=== PATIENT | female | born 1955 | race Caucasian/White ===

== ENCOUNTER 2018-01-17 10:35 | Inpatient (IN) | payer OTHER ==
[~2018-01-17] VITALS: Ht 162.6 cm; Wt 66.7 kg
[2018-01-17 10:36] VITALS: BP 137/60
[2018-01-17 11:05] LABS: HEMATOCRIT 44.7 % (37.0-47.0); HEMOGLOBIN 13.9 g/dl (12.0-16.0); MEAN CELL VOLUME 97.2 fl (81.0-99.0); MEAN CORPUSCULAR HGB 30.2 pg (27.0-31.0); MEAN CORPUSCULAR HGB CONC 31.1 g/dl (33.0-37.0); MEAN PLATELET VOLUME 11.6 fl (9.6-12.3); PLATELET COUNT AUTOMATED 327 10*3/uL (130-400); RED CELL DISTRI WIDTH 12.6 % (0-14.5); WHITE BLOOD COUNT 22.8 10*3/uL (4.8-10.8)
[2018-01-17 11:14] LABS: ACT PARTIAL THROMBO TIME 27.1 SECONDS (20.8-31.5); INTERNATIONAL NORM RATIO 0.9 (2.0-3.5)
[2018-01-17 11:30] LABS: BURR CELLS FEW; PLATELET SUFFICIENCY NORMAL (NORMAL); TOTAL CELLS COUNTED 100 #CELLS
[2018-01-17 11:43] LABS: ALBUMIN 4.5 gm/dl (3.1-4.5); BUN 26 mg/dl (7-24); CHLORIDE 105 mmol/L (98-107); CREATININE 1.54 mg/dL (0.55-1.02); LIPASE 87 U/L (73-393); SODIUM 139 mmol/L (136-145)
[2018-01-17 11:52] LABS: ALKALINE PHOSPHATASE 122 U/L (45-117); SGOT/AST 15 IU/L (3-35); SGPT/ALT 25 U/L (12-78); TOTAL PROTEIN 8.4 gm/dL (6.4-8.2)
[2018-01-17 12:01] LABS: POTASSIUM 6.1 mmol/L (3.5-5.1)
[2018-01-17 12:04] LABS: BILIRUBIN NEGATIVE (NEGATIVE); BLOOD TRACE-INTACT (NEGATIVE); CLARITY SL CLOUDY (CLEAR); COLOR YELLOW (YELLOW); GLUCOSE 3+ (NEGATIVE); KETONE 3+ (NEGATIVE); LEUKO ESTERASE NEGATIVE (NEGATIVE); NITRITE NEGATIVE (NEGATIVE); PH 5.5 (5.0-9.0); SPECIFIC GRAVITY 1.025 (1.005-1.030); UROBILINOGEN 0.2 E.U./dl (0.2-1.0)
[2018-01-17 12:06] VITALS: BP 142/80
[2018-01-17 12:13] LABS: BACTERIA 1+
[2018-01-17] MEDS ORDERED: LEVEMIR100 UNIT/1 SC (13:11)
[2018-01-17] MEDS ORDERED: ZOCOR40 MG PO (13:12)
[2018-01-17] MEDS ORDERED: ZESTRIL10 MG PO (13:13)
[2018-01-17 13:17] LABS: ABG O2 SATURATION 96.5 % (95-97); ARTERIAL BLOOD GAS PCO2 15.9 mmHg (35-45)
[2018-01-17 13:22] LABS: ABG BASE EXCESS -26.5 mmol/L (-2.0-2.0); ARTERIAL BLOOD GAS PH 7.026 (7.35-7.45)
[2018-01-17 13:25] LABS: TROPONIN I < 0.015 ng/ml (<0.045)
[2018-01-17 16:00] VITALS: BP 147/69
[2018-01-17 20:00] VITALS: BP 118/57
[2018-01-17 20:01] LABS: CREATININE 1.16 mg/dL (0.55-1.02)
[2018-01-18] VITALS (7 sets, daily range): BP systolic 88–107; BP diastolic 46–79
[2018-01-18 00:13] LABS: CREATININE 2.01 mg/dL (0.55-1.02)
[2018-01-18 00:29] LABS: POTASSIUM 3.7 mmol/L (3.5-5.1)
[2018-01-18 02:49] LABS: ALKALINE PHOSPHATASE 86 U/L (45-117); CHLORIDE 119 mmol/L (98-107); CREATININE 1.05 mg/dL (0.55-1.02); POTASSIUM 3.5 mmol/L (3.5-5.1); SGOT/AST 14 IU/L (3-35); SGPT/ALT 19 U/L (12-78); TOTAL PROTEIN 5.6 gm/dL (6.4-8.2)
[2018-01-18 03:13] LABS: BUN 19 mg/dl (7-24)
[2018-01-18 03:14] LABS: SODIUM 144 mmol/L (136-145)
[2018-01-18 04:59] LABS: MEAN CORPUSCULAR HGB 30.5 pg (27.0-31.0); MEAN CORPUSCULAR HGB CONC 32.4 g/dl (33.0-37.0); MEAN PLATELET VOLUME 10.4 fl (9.6-12.3); RED BLOOD COUNT 3.51 10*6/uL (4.10-5.10); RED CELL DISTRI WIDTH 12.8 % (0-14.5)
[2018-01-18 05:11] LABS: HEMOGLOBIN 10.7 g/dl (12.0-16.0); PLATELET COUNT AUTOMATED 198 10*3/uL (130-400)
[2018-01-18 05:28] LABS: BURR CELLS FEW; TOTAL CELLS COUNTED 100 #CELLS
[2018-01-18 05:29] LABS: PLATELET SUFFICIENCY NORMAL (NORMAL)
[2018-01-18 05:31] LABS: BUN 18 mg/dl (7-24); CHLORIDE 121 mmol/L (98-107); CHOLESTEROL 158 mg/dL (<200); CREATININE 0.92 mg/dL (0.55-1.02); HDL CHOLESTEROL 53 mg/dl (40-60); LDL CHOLESTEROL 95 mg/dL (9-159); PHOSPHOROUS 1.9 mg/dL (2.5-4.9); POTASSIUM 3.9 mmol/L (3.5-5.1); SODIUM 147 mmol/L (136-145); TRIGLYCERIDES 52 mg/dl (<150); VLDL CHOLESTEROL 10 mg/dL (6-40)
[2018-01-18 05:37] LABS: THYROID STIM HORMONE (HS) 0.545 uIU/ml (0.358-4.75)
[2018-01-18 06:41] LABS: VITAMIN D, 25-HYDROXY 15.1 ng/mL (30-100)
[2018-01-18 09:35] LABS: BUN 15 mg/dl (7-24); CHLORIDE 118 mmol/L (98-107); CREATININE 0.95 mg/dL (0.55-1.02); SODIUM 145 mmol/L (136-145)
[2018-01-18 12:04] LABS: BUN 15 mg/dl (7-24); CHLORIDE 116 mmol/L (98-107); CREATININE 0.94 mg/dL (0.55-1.02); POTASSIUM 4.4 mmol/L (3.5-5.1); SODIUM 143 mmol/L (136-145)
[2018-01-18 17:34] LABS: BUN 12 mg/dl (7-24); CHLORIDE 114 mmol/L (98-107); CREATININE 0.96 mg/dL (0.55-1.02); POTASSIUM 3.6 mmol/L (3.5-5.1); SODIUM 142 mmol/L (136-145)
[2018-01-18 23:11] LABS: CREATININE 1.11 mg/dL (0.55-1.02); POTASSIUM 4.1 mmol/L (3.5-5.1)
[2018-01-19] VITALS: BP 109/62
[2018-01-19 04:00] VITALS: BP 115/69
[2018-01-19 06:11] LABS: BASO % 0.2 % (0.0-1.0); EOS % 0.4 % (1.0-4.0); HEMATOCRIT 32.7 % (37.0-47.0); HEMOGLOBIN 10.6 g/dl (12.0-16.0); LYMPH # 1.7 10*3/uL (1.3-4.4); LYMPH % 17.4 % (27.0-41.0); MEAN CELL VOLUME 92.9 fl (81.0-99.0); MEAN CORPUSCULAR HGB 30.1 pg (27.0-31.0); MEAN CORPUSCULAR HGB CONC 32.4 g/dl (33.0-37.0); MEAN PLATELET VOLUME 10.9 fl (9.6-12.3); MONO # 0.5 10*3/uL (0.1-1.0); MONO % 5.2 % (3.0-9.0); NEUT # 7.5 10*3/uL (2.3-7.9); NEUT % 76.4 % (47.0-73.0); PLATELET COUNT AUTOMATED 153 10*3/uL (130-400); RED BLOOD COUNT 3.52 10*6/uL (4.10-5.10); RED CELL DISTRI WIDTH 13.3 % (0-14.5); WHITE BLOOD COUNT 9.8 10*3/uL (4.8-10.8)
[2018-01-19 06:16] LABS: BUN 9 mg/dl (7-24); CHLORIDE 114 mmol/L (98-107); CREATININE 0.81 mg/dL (0.55-1.02); POTASSIUM 4.1 mmol/L (3.5-5.1); SODIUM 144 mmol/L (136-145)
[2018-01-19 08:00] VITALS: BP 120/71
[2018-01-19 12:00] VITALS: BP 101/70; BP 129/70
[2018-01-19 12:02] LABS: BUN 9 mg/dl (7-24); CHLORIDE 111 mmol/L (98-107); CREATININE 0.81 mg/dL (0.55-1.02); POTASSIUM 3.5 mmol/L (3.5-5.1); SODIUM 142 mmol/L (136-145)
[2018-01-19 16:00] VITALS: BP 118/67
[2018-01-19 20:00] VITALS: BP 127/67
[2018-01-20] VITALS: BP 102/56
[2018-01-20 07:59] LABS: BUN 11 mg/dl (7-24); CHLORIDE 108 mmol/L (98-107); CREATININE 0.57 mg/dL (0.55-1.02); POTASSIUM 3.5 mmol/L (3.5-5.1); SODIUM 145 mmol/L (136-145)
[2018-01-20 08:00] VITALS: BP 125/69
[2018-01-20] MEDS ORDERED: B12,B-12,B 12500 MC1 PO (11:58)
[2018-01-20] MEDS ORDERED: VITAMIN D-32000 UNIT PO (11:58)
[2018-01-20] MEDS ORDERED: LEVEMIR FL100 UNIT/1 SQ (11:58)
[2018-01-20] MEDS ORDERED: Humalog SQ (11:58)
== END 2018-01-20 12:14 | disposition home or self-care (01) | DRG 637 ==
LOC: ED 10:35 → ICCU 12:11 → EDHOLD 12:11 → ICCU 12:15 → 4E 01-19 18:34
PROVIDERS: Emergency Medicine; Family Medicine; Internal Medicine; Student in an Organized Health Care Education/Training Program
DX: E13.10 Other specified diabetes mellitus with ketoacidosis without coma (principal); N17.0 Acute kidney failure with tubular necrosis; R65.11 Systemic inflammatory response syndrome (SIRS) of non-infectious origin with acute organ dysfunction; E87.0 Hyperosmolality and hypernatremia; E44.0 Moderate protein-calorie malnutrition; E87.1 Hypo-osmolality and hyponatremia; E87.5 Hyperkalemia; E83.39 Other disorders of phosphorus metabolism; D64.9 Anemia, unspecified; E53.8 Deficiency of other specified B group vitamins; E87.8 Other disorders of electrolyte and fluid balance, not elsewhere classified; E55.9 Vitamin D deficiency, unspecified; I10 Essential (primary) hypertension; E78.5 Hyperlipidemia, unspecified; R82.4 Acetonuria; E83.41 Hypermagnesemia; Z79.4 Long term (current) use of insulin; Z90.710 Acquired absence of both cervix and uterus; Z83.3 Family history of diabetes mellitus; Z68.26 Body mass index [BMI] 26.0-26.9, adult

== ENCOUNTER → 2018-02-17 | Outpatient (CLI) | payer OTHER ==
[~2018-02-17] MED LIST: B12,B-12,B 12500 MC1 PO; Humalog SQ; LEVEMIR FL100 UNIT/1 SQ; LEVEMIR100 UNIT/1 SC; VITAMIN D-32000 UNIT PO; ZESTRIL10 MG PO; ZOCOR40 MG PO
== END | disposition home or self-care (01) ==
LOC: D 10:39
DX: E11.65 Type 2 diabetes mellitus with hyperglycemia (principal)

== ENCOUNTER → 2019-01-27 | Outpatient (CLI) | payer MEDICARE | END | disposition home or self-care (01) | LOC: RESCLI 00:26 | DX: Z12.11 Encounter for screening for malignant neoplasm of colon (principal); Z12.4 Encounter for screening for malignant neoplasm of cervix; E11.65 Type 2 diabetes mellitus with hyperglycemia; E78.5 Hyperlipidemia, unspecified; I10 Essential (primary) hypertension; E55.9 Vitamin D deficiency, unspecified; E53.8 Deficiency of other specified B group vitamins; Z79.899 Other long term (current) drug therapy; Z88.8 Allergy status to other drugs, medicaments and biological substances ==

== ENCOUNTER → 2019-02-15 | Outpatient (CLI) | payer MEDICARE | END | disposition home or self-care (01) | LOC: MAMMO 09:51 | DX: Z12.31 Encounter for screening mammogram for malignant neoplasm of breast (principal) ==

== ENCOUNTER → 2020-02-09 | Outpatient (CLI) | payer MEDICARE | END | disposition home or self-care (01) | LOC: RESCLI 01:54 | DX: Z13.9 Encounter for screening, unspecified (principal); E78.2 Mixed hyperlipidemia; I10 Essential (primary) hypertension; E53.8 Deficiency of other specified B group vitamins; E55.9 Vitamin D deficiency, unspecified; E13.9 Other specified diabetes mellitus without complications ==

== ENCOUNTER → 2020-02-28 | Outpatient (CLI) | payer MEDICARE ==
[2020-02-28 09:04] LABS: ALBUMIN 3.4 gm/dl (3.1-4.5); ALKALINE PHOSPHATASE 97 U/L (45-117); BUN 16 mg/dl (7-24); CHLORIDE 108 mmol/L (98-107); CHOLESTEROL 209 mg/dL (<200); CREATININE 0.73 mg/dL (0.55-1.02); HDL CHOLESTEROL 86 mg/dl (40-60); LDL CHOLESTEROL 111 mg/dL (9-159); POTASSIUM 4.2 mmol/L (3.5-5.1); SGOT/AST 16 IU/L (3-35); SGPT/ALT 19 U/L (12-78); SODIUM 139 mmol/L (136-145); TRIGLYCERIDES 60 mg/dl (<150); VLDL CHOLESTEROL 12 mg/dL (6-40)
[2020-02-28 09:10] LABS: FREE T4 0.95 ng/dl (0.76-1.46)
[2020-02-28 09:36] LABS: VITAMIN D, 25-HYDROXY 43.6 ng/mL (30-100)
[2020-02-29 08:11] LABS: THYROID PEROXIDASE (TPO) AB 97 IU/mL (0-34)
[2020-02-29 10:09] LABS: CREATININE,URINE 51.6 mg/dL (Not Estab.); MICRO ALBUMIN/CRE RATIO <6 (0-29)
[2020-02-29 15:06] LABS: t-TRANSGLUTAMINASE (tTG) IGA <2 U/mL (0-3)
[2020-03-01 13:09] LABS: THYROGLOBULIN ANTIBODY 1.7 IU/mL (0.0-0.9)
== END | disposition home or self-care (01) ==
LOC: LAB 07:51
PROVIDERS: Internal Medicine Endocrinology, Diabetes & Metabolism
DX: I10 Essential (primary) hypertension (principal); E78.5 Hyperlipidemia, unspecified; E53.8 Deficiency of other specified B group vitamins; E55.9 Vitamin D deficiency, unspecified; E13.9 Other specified diabetes mellitus without complications

== ENCOUNTER → 2020-03-04 | Outpatient (CLI) | payer MEDICARE | END | disposition home or self-care (01) | LOC: MAMMO 10:00 | DX: Z12.31 Encounter for screening mammogram for malignant neoplasm of breast (principal) ==

== ENCOUNTER → 2020-04-17 | Outpatient (CLI) | payer MEDICARE | END | disposition home or self-care (01) | LOC: RESCLI 04:04 | PROVIDERS: ATTEND Internal Medicine Nephrology | DX: E13.9 Other specified diabetes mellitus without complications (principal); E55.9 Vitamin D deficiency, unspecified; I10 Essential (primary) hypertension; E78.2 Mixed hyperlipidemia; Z13.9 Encounter for screening, unspecified; Z79.4 Long term (current) use of insulin; Z79.899 Other long term (current) drug therapy; Z98.890 Other specified postprocedural states ==

== ENCOUNTER → 2020-04-24 | Outpatient (CLI) | payer MEDICARE | END | disposition home or self-care (01) | LOC: RAD 01:03 | PROVIDERS: ATTEND Internal Medicine Nephrology | DX: M81.0 Age-related osteoporosis without current pathological fracture (principal); Z13.220 Encounter for screening for lipoid disorders ==

== ENCOUNTER 2021-05-09 18:21 | Inpatient (IN) | payer MEDICARE ==
[~2021-05-09] VITALS: Ht 167.6 cm; Wt 74.0 kg
[~2021-05-09 18:21] MED LIST changes: +LIPITOR80 MG PO; -ZOCOR40 MG PO
[2021-05-09 18:23] VITALS: BP 105/46
[2021-05-09 18:57] VITALS: BP 97/36
[2021-05-09 19:00] LABS: HEMATOCRIT 29.2 % (37.0-47.0); MEAN CELL VOLUME 102.8 fl (81.0-99.0); MEAN CORPUSCULAR HGB 29.9 pg (27.0-31.0); MEAN CORPUSCULAR HGB CONC 29.1 g/dl (33.0-37.0); MEAN PLATELET VOLUME 11.3 fl (9.6-12.3); PLATELET COUNT AUTOMATED 302 10*3/uL (130-400); RED BLOOD COUNT 2.84 10*6/uL (4.10-5.10); RED CELL DISTRI WIDTH 13.2 % (0-14.5); WHITE BLOOD COUNT 25.9 10*3/uL (4.8-10.8)
[2021-05-09 19:10] LABS: BILIRUBIN Negative (Negative); BLOOD Trace-Lysed (Negative); CLARITY Clear (Clear); COLOR Yellow (Yellow); GLUCOSE 3+ (Negative); KETONE 3+ (Negative); LEUKO ESTERASE Negative (Negative); NITRITE Negative (Negative); SPECIFIC GRAVITY 1.025 (1.001-1.030); UROBILINOGEN 0.2 E.U./dl (0.0-1.0)
[2021-05-09 19:12] LABS: ACT PARTIAL THROMBO TIME 41.3 SECONDS (20.0-32.1); INTERNATIONAL NORM RATIO 1.4 (2.0-3.5)
[2021-05-09 19:17] LABS: PLATELET SUFFICIENCY NORMAL (NORMAL); TOTAL CELLS COUNTED 100 #CELLS
[2021-05-09 19:18] LABS: ALBUMIN 1.5 gm/dl (3.1-4.5); ALKALINE PHOSPHATASE 84 U/L (45-117); BUN 22 mg/dl (7-24); BURR CELLS MODERATE; CHLORIDE 120 mmol/L (98-107); CREATININE 0.97 mg/dL (0.55-1.02); LIPASE 21 U/L (73-393); OVALOCYTES FEW; POTASSIUM 3.1 mmol/L (3.5-5.1); SGOT/AST 10 IU/L (3-35); SGPT/ALT 13 U/L (12-78); SODIUM 149 mmol/L (136-145); TOTAL PROTEIN 3.5 gm/dL (6.4-8.2)
[2021-05-09 19:19] LABS: TROPONIN I 0.021 ng/ml (<0.045)
[2021-05-09 19:37] LABS: BACTERIA TRACE
[2021-05-09 20:02] VITALS: BP 120/59
[2021-05-09 22:01] LABS: CREATININE 1.85 mg/dL (0.55-1.02)
[2021-05-09 22:05] LABS: POTASSIUM 4.3 mmol/L (3.5-5.1)
[2021-05-09 22:25] VITALS: BP 121/54
[2021-05-09 22:49] VITALS: BP 125/43
[2021-05-09 23:06] LABS: ARTERIAL BLOOD GAS PH 7.218 (7.35-7.45); ARTERIAL BLOOD GAS PO2 86.5 (80-90)
[2021-05-09 23:07] LABS: ABG BASE EXCESS -19.1 mmol/L (-2.0-2.0)
[2021-05-10] VITALS (9 sets, daily range): BP systolic 107–134; BP diastolic 33–72
[2021-05-10 00:25] LABS: CREATININE 1.67 mg/dL (0.55-1.02); POTASSIUM 4.1 mmol/L (3.5-5.1)
[2021-05-10 02:25] LABS: CREATININE 1.55 mg/dL (0.55-1.02); POTASSIUM 3.9 mmol/L (3.5-5.1)
[2021-05-10 04:34] LABS: CREATININE 1.44 mg/dL (0.55-1.02); POTASSIUM 4.8 mmol/L (3.5-5.1)
[2021-05-10 06:44] LABS: HEMATOCRIT 34.8 % (37.0-47.0); MEAN CORPUSCULAR HGB 29.5 pg (27.0-31.0); MEAN CORPUSCULAR HGB CONC 31.6 g/dl (33.0-37.0); MEAN PLATELET VOLUME 10.3 fl (9.6-12.3); PLATELET COUNT AUTOMATED 270 10*3/uL (130-400); RED BLOOD COUNT 3.73 10*6/uL (4.10-5.10); RED CELL DISTRI WIDTH 13.1 % (0-14.5)
[2021-05-10 06:46] LABS: MEAN CELL VOLUME 93.3 fl (81.0-99.0)
[2021-05-10 07:03] LABS: ALBUMIN 3.2 gm/dl (3.1-4.5); CREATININE 1.3 mg/dL (0.55-1.02); TOTAL PROTEIN 6.4 gm/dL (6.4-8.2)
[2021-05-10 07:05] LABS: CREATININE 1.32 mg/dL (0.55-1.02)
[2021-05-10 07:07] LABS: POTASSIUM 3.6 mmol/L (3.5-5.1)
[2021-05-10 07:09] LABS: FREE T4 1.06 ng/dl (0.76-1.46); THYROID STIM HORMONE (HS) 0.181 uIU/ml (0.358-4.75)
[2021-05-10 07:10] LABS: POTASSIUM 3.7 mmol/L (3.5-5.1)
[2021-05-10 07:16] LABS: TOTAL CELLS COUNTED 100 #CELLS
[2021-05-10 07:17] LABS: BURR CELLS FEW
[2021-05-10 07:18] LABS: OVALOCYTES FEW; PLATELET SUFFICIENCY NORMAL (NORMAL)
[2021-05-10 07:50] LABS: VITAMIN D, 25-HYDROXY 24.7 ng/mL (30-100)
[2021-05-10 09:58] LABS: CREATININE 1.25 mg/dL (0.55-1.02); POTASSIUM 3.5 mmol/L (3.5-5.1)
[2021-05-10] MEDS ORDERED: FOSAMAX70 M1 PO (12:01)
[2021-05-10 14:02] LABS: BUN 25 mg/dl (7-24); CHLORIDE 122 mmol/L (98-107); POTASSIUM 4.4 mmol/L (3.5-5.1); SODIUM 150 mmol/L (136-145)
[2021-05-10 18:13] LABS: CREATININE 1.12 mg/dL (0.55-1.02); POTASSIUM 4.7 mmol/L (3.5-5.1)
[2021-05-10 22:19] LABS: BUN 24 mg/dl (7-24); CHLORIDE 120 mmol/L (98-107); CREATININE 1.04 mg/dL (0.55-1.02); POTASSIUM 4.2 mmol/L (3.5-5.1); SODIUM 146 mmol/L (136-145)
[2021-05-11] VITALS: BP 142/59
[2021-05-11 02:07] LABS: BUN 21 mg/dl (7-24); CHLORIDE 120 mmol/L (98-107); CREATININE 1.04 mg/dL (0.55-1.02); POTASSIUM 3.7 mmol/L (3.5-5.1); SODIUM 149 mmol/L (136-145)
[2021-05-11 04:00] VITALS: BP 107/80
[2021-05-11 05:55] LABS: BUN 19 mg/dl (7-24); CHLORIDE 121 mmol/L (98-107); CREATININE 0.89 mg/dL (0.55-1.02); POTASSIUM 3.6 mmol/L (3.5-5.1); SODIUM 149 mmol/L (136-145)
[2021-05-11 06:02] LABS: BASO % 0.2 % (0.0-1.0); EOS % 0.1 % (1.0-4.0); HEMATOCRIT 34.8 % (37.0-47.0); LYMPH # 1.8 10*3/uL (1.3-4.4); LYMPH % 9.2 % (27.0-41.0); MEAN CELL VOLUME 94.3 fl (81.0-99.0); MEAN CORPUSCULAR HGB 30.1 pg (27.0-31.0); MEAN CORPUSCULAR HGB CONC 31.9 g/dl (33.0-37.0); MEAN PLATELET VOLUME 10.5 fl (9.6-12.3); MONO # 1.1 10*3/uL (0.1-1.0); MONO % 5.8 % (3.0-9.0); NEUT % 84.1 % (47.0-73.0); PLATELET COUNT AUTOMATED 237 10*3/uL (130-400); RED BLOOD COUNT 3.69 10*6/uL (4.10-5.10); RED CELL DISTRI WIDTH 13.6 % (0-14.5)
[2021-05-11 08:00] VITALS: BP 143/71
[2021-05-11 12:00] VITALS: BP 147/79
[2021-05-11 16:00] VITALS: BP 137/69
[2021-05-11 20:00] VITALS: BP 143/75
[2021-05-12] VITALS: BP 143/83
[2021-05-12 04:00] VITALS: BP 143/75
[2021-05-12 05:57] LABS: BUN 10 mg/dl (7-24); CHLORIDE 113 mmol/L (98-107); CREATININE 0.58 mg/dL (0.55-1.02); POTASSIUM 3.7 mmol/L (3.5-5.1); SODIUM 146 mmol/L (136-145)
[2021-05-12 06:09] LABS: BASO % 0.4 % (0.0-1.0); EOS # 0.1 10*3/uL (0.0-0.4); EOS % 0.7 % (1.0-4.0); HEMATOCRIT 33.8 % (37.0-47.0); LYMPH # 1.9 10*3/uL (1.3-4.4); LYMPH % 28.3 % (27.0-41.0); MEAN CELL VOLUME 93.1 fl (81.0-99.0); MEAN CORPUSCULAR HGB 29.2 pg (27.0-31.0); MEAN CORPUSCULAR HGB CONC 31.4 g/dl (33.0-37.0); MONO # 0.5 10*3/uL (0.1-1.0); MONO % 7.2 % (3.0-9.0); NEUT # 4.3 10*3/uL (2.3-7.9); NEUT % 63.1 % (47.0-73.0); PLATELET COUNT AUTOMATED 198 10*3/uL (130-400); RED BLOOD COUNT 3.63 10*6/uL (4.10-5.10); RED CELL DISTRI WIDTH 13.8 % (0-14.5); WHITE BLOOD COUNT 6.9 10*3/uL (4.8-10.8)
[2021-05-12 08:00] VITALS: BP 145/77
[2021-05-12 12:00] VITALS: BP 148/76
[2021-05-12 16:00] VITALS: BP 147/83
[2021-05-12 20:00] VITALS: BP 152/79
[2021-05-13] VITALS: BP 142/78
[2021-05-13 05:56] LABS: BUN 11 mg/dl (7-24); CHLORIDE 112 mmol/L (98-107); CREATININE 0.66 mg/dL (0.55-1.02); POTASSIUM 4.1 mmol/L (3.5-5.1); SODIUM 145 mmol/L (136-145)
[2021-05-13 06:12] LABS: BASO % 0.4 % (0.0-1.0); EOS # 0.1 10*3/uL (0.0-0.4); EOS % 2.1 % (1.0-4.0); MEAN CELL VOLUME 93.2 fl (81.0-99.0); MEAN CORPUSCULAR HGB 29.3 pg (27.0-31.0); MEAN CORPUSCULAR HGB CONC 31.5 g/dl (33.0-37.0); MEAN PLATELET VOLUME 10.2 fl (9.6-12.3); MONO # 0.4 10*3/uL (0.1-1.0); MONO % 8.4 % (3.0-9.0); NEUT # 2.3 10*3/uL (2.3-7.9); NEUT % 47.7 % (47.0-73.0); PLATELET COUNT AUTOMATED 154 10*3/uL (130-400); RED BLOOD COUNT 3.65 10*6/uL (4.10-5.10); RED CELL DISTRI WIDTH 13.2 % (0-14.5); WHITE BLOOD COUNT 4.8 10*3/uL (4.8-10.8)
[2021-05-13 08:00] VITALS: BP 150/80
[2021-05-13 11:34] VITALS: BP 143/80
[2021-05-13] MEDS ORDERED: VITAMIN D350 MC2 PO (11:37)
[2021-05-13] MEDS ORDERED: HUMALOG100 UNIT/1 SC (11:37)
[2021-05-13] MEDS ORDERED: LIPITOR20 MG PO ×2 (11:37)
[2021-05-13] MEDS ORDERED: LISINOPRIL20 MG PO (11:37)
[2021-05-13] MEDS ORDERED: GLUCOPHAGE500 MG PO (11:37)
[2021-05-13] MEDS ORDERED: LANTUS SOL100 UNIT/1 SC ×2 (11:37)
== END 2021-05-13 14:15 | disposition home health service (06) | DRG 637 ==
LOC: ED 18:21 → EDHOLD 20:28 → ICCU 20:28 → EDHOLD 20:59 → ICCU 05-10 01:12
PROVIDERS: Emergency Medicine; Family Medicine; Internal Medicine; ADMIT Student in an Organized Health Care Education/Training Program; ATTEND Student in an Organized Health Care Education/Training Program
DX: E11.10 Type 2 diabetes mellitus with ketoacidosis without coma (principal); G93.41 Metabolic encephalopathy; N17.0 Acute kidney failure with tubular necrosis; E43 Unspecified severe protein-calorie malnutrition; E87.0 Hyperosmolality and hypernatremia; R65.10 Systemic inflammatory response syndrome (SIRS) of non-infectious origin without acute organ dysfunction; D68.9 Coagulation defect, unspecified; E87.8 Other disorders of electrolyte and fluid balance, not elsewhere classified; D53.9 Nutritional anemia, unspecified; E83.51 Hypocalcemia; E87.6 Hypokalemia; F41.9 Anxiety disorder, unspecified; E11.00 Type 2 diabetes mellitus with hyperosmolarity without nonketotic hyperglycemic-hyperosmolar coma (NKHHC); I10 Essential (primary) hypertension; E78.5 Hyperlipidemia, unspecified; E53.8 Deficiency of other specified B group vitamins; Z79.4 Long term (current) use of insulin; Z79.899 Other long term (current) drug therapy; Z90.710 Acquired absence of both cervix and uterus

== ENCOUNTER → 2021-05-22 | Outpatient (CLI) | payer MEDICARE ==
[~2021-05-22] MED LIST changes: +FOSAMAX70 M1 PO; +GLUCOPHAGE500 MG PO; +HUMALOG100 UNIT/1 SC; +LANTUS SOL100 UNIT/1 SC; +LIPITOR20 MG PO; +LISINOPRIL20 MG PO; +METFORMIN HYDR500 MG PO; +VITAMIN D350 MC2 PO
== END | disposition home or self-care (01) ==
LOC: RESCLI 04:38
PROVIDERS: ATTEND Internal Medicine
DX: E55.9 Vitamin D deficiency, unspecified (principal); E78.5 Hyperlipidemia, unspecified; I10 Essential (primary) hypertension; E11.65 Type 2 diabetes mellitus with hyperglycemia; M81.0 Age-related osteoporosis without current pathological fracture; Z79.4 Long term (current) use of insulin; E78.2 Mixed hyperlipidemia; Z79.899 Other long term (current) drug therapy; Z79.84 Long term (current) use of oral hypoglycemic drugs; Z90.710 Acquired absence of both cervix and uterus

== ENCOUNTER 2021-05-24 01:15 | Inpatient (IN) | payer MEDICARE ==
[2021-05-24] VITALS (8 sets, daily range): BP systolic 93–100; BP diastolic 31–62
[~2021-05-24] VITALS: Ht 162.6 cm; Wt 68.9 kg
[~2021-05-24 01:15] MED LIST changes: -METFORMIN HYDR500 MG PO
[2021-05-24 02:02] LABS: HEMATOCRIT 35.9 % (37.0-47.0); MEAN CELL VOLUME 95.5 fl (81.0-99.0); MEAN CORPUSCULAR HGB 30.1 pg (27.0-31.0); MEAN CORPUSCULAR HGB CONC 31.5 g/dl (33.0-37.0); MEAN PLATELET VOLUME 11.1 fl (9.6-12.3); PLATELET COUNT AUTOMATED 256 10*3/uL (130-400); RED BLOOD COUNT 3.76 10*6/uL (4.10-5.10); RED CELL DISTRI WIDTH 13.6 % (0-14.5); WHITE BLOOD COUNT 25.5 10*3/uL (4.8-10.8)
[2021-05-24 02:16] LABS: CREATININE 1.67 mg/dL (0.55-1.02); POTASSIUM 4.2 mmol/L (3.5-5.1); TOTAL PROTEIN 6.2 gm/dL (6.4-8.2)
[2021-05-24 02:45] LABS: PLATELET SUFFICIENCY NORMAL (NORMAL); TOTAL CELLS COUNTED 100 #CELLS
[2021-05-24 02:56] LABS: VENOUS PH 7.267 (7.37-7.45)
[2021-05-24 06:21] LABS: HEMATOCRIT 32.9 % (37.0-47.0); MEAN CORPUSCULAR HGB CONC 31.9 g/dl (33.0-37.0); MEAN PLATELET VOLUME 10.2 fl (9.6-12.3); PLATELET COUNT AUTOMATED 242 10*3/uL (130-400); RED CELL DISTRI WIDTH 13.7 % (0-14.5); WHITE BLOOD COUNT 21.9 10*3/uL (4.8-10.8)
[2021-05-24 06:34] LABS: CREATININE 1.49 mg/dL (0.55-1.02); POTASSIUM 3.6 mmol/L (3.5-5.1)
[2021-05-24 10:03] LABS: PLATELET SUFFICIENCY NORMAL (NORMAL); TOTAL CELLS COUNTED 100 #CELLS
[2021-05-24 10:16] LABS: CREATININE 1.16 mg/dL (0.55-1.02); POTASSIUM 3.4 mmol/L (3.5-5.1)
[2021-05-24] MEDS ORDERED: LIPITOR20 MG PO (12:05)
[2021-05-24] MEDS ORDERED: LANTUS SOL100 UNIT/1 SC (12:06)
[2021-05-24] MEDS ORDERED: METFORMIN HYDR500 MG PO (12:22)
[2021-05-24 14:03] LABS: BUN 22 mg/dl (7-24); CHLORIDE 112 mmol/L (98-107); CREATININE 1.04 mg/dL (0.55-1.02); POTASSIUM 4.3 mmol/L (3.5-5.1); SODIUM 140 mmol/L (136-145)
[2021-05-24 18:11] LABS: BUN 20 mg/dl (7-24); CHLORIDE 112 mmol/L (98-107); POTASSIUM 4.2 mmol/L (3.5-5.1); SODIUM 139 mmol/L (136-145)
[2021-05-24 19:04] LABS: BILIRUBIN Negative (Negative); BLOOD Negative (Negative); CLARITY Cloudy (Clear); COLOR Yellow (Yellow); GLUCOSE 3+ (Negative); KETONE 3+ (Negative); LEUKO ESTERASE Negative (Negative); NITRITE Negative (Negative); UROBILINOGEN 0.2 E.U./dl (0.0-1.0)
[2021-05-24 19:16] LABS: BACTERIA 2+; RBC 0-2 rbc/hpf (0-2)
[2021-05-25] VITALS: BP 97/51
[2021-05-25 00:28] LABS: BUN 18 mg/dl (7-24); CHLORIDE 113 mmol/L (98-107); CREATININE 1.08 mg/dL (0.55-1.02); POTASSIUM 3.9 mmol/L (3.5-5.1); SODIUM 139 mmol/L (136-145)
[2021-05-25 04:00] VITALS: BP 116/70
[2021-05-25 06:20] LABS: BASO % 0.4 % (0.0-1.0); EOS # 0.1 10*3/uL (0.0-0.4); EOS % 1.9 % (1.0-4.0); HEMATOCRIT 32.2 % (37.0-47.0); LYMPH % 26.4 % (27.0-41.0); MEAN CELL VOLUME 91.7 fl (81.0-99.0); MEAN CORPUSCULAR HGB 29.6 pg (27.0-31.0); MEAN CORPUSCULAR HGB CONC 32.3 g/dl (33.0-37.0); MEAN PLATELET VOLUME 10.8 fl (9.6-12.3); MONO # 0.5 10*3/uL (0.1-1.0); MONO % 6.2 % (3.0-9.0); NEUT # 4.8 10*3/uL (2.3-7.9); NEUT % 64.7 % (47.0-73.0); PLATELET COUNT AUTOMATED 175 10*3/uL (130-400); RED BLOOD COUNT 3.51 10*6/uL (4.10-5.10); WHITE BLOOD COUNT 7.4 10*3/uL (4.8-10.8)
[2021-05-25 06:21] LABS: BUN 16 mg/dl (7-24); CHLORIDE 113 mmol/L (98-107); CREATININE 0.84 mg/dL (0.55-1.02); POTASSIUM 4.1 mmol/L (3.5-5.1); SODIUM 143 mmol/L (136-145)
[2021-05-25 08:00] VITALS: BP 122/76
[2021-05-25 12:00] VITALS: BP 116/70
[2021-05-25 16:00] VITALS: BP 137/79
[2021-05-25 20:00] VITALS: BP 157/79
[2021-05-26] VITALS: BP 140/80
[2021-05-26 07:01] LABS: BUN 8 mg/dl (7-24); CHLORIDE 111 mmol/L (98-107); CREATININE 0.61 mg/dL (0.55-1.02); POTASSIUM 3.5 mmol/L (3.5-5.1); SODIUM 143 mmol/L (136-145)
[2021-05-26 07:05] LABS: BASO % 0.2 % (0.0-1.0); EOS # 0.1 10*3/uL (0.0-0.4); HEMATOCRIT 31.7 % (37.0-47.0); LYMPH # 1.9 10*3/uL (1.3-4.4); LYMPH % 37.6 % (27.0-41.0); MEAN CELL VOLUME 92.4 fl (81.0-99.0); MEAN CORPUSCULAR HGB 29.7 pg (27.0-31.0); MEAN CORPUSCULAR HGB CONC 32.2 g/dl (33.0-37.0); MEAN PLATELET VOLUME 10.4 fl (9.6-12.3); MONO # 0.4 10*3/uL (0.1-1.0); MONO % 7.4 % (3.0-9.0); NEUT # 2.6 10*3/uL (2.3-7.9); NEUT % 52.6 % (47.0-73.0); PLATELET COUNT AUTOMATED 136 10*3/uL (130-400); RED BLOOD COUNT 3.43 10*6/uL (4.10-5.10); RED CELL DISTRI WIDTH 13.6 % (0-14.5)
[2021-05-26 08:00] VITALS: BP 124/78
[2021-05-26 11:45] VITALS: BP 137/70
== END 2021-05-26 14:02 | disposition home health service (06) | DRG 637 ==
LOC: ED 01:15 → EDHOLD 03:25 → ICCU 09:56 → 4E 05-25 18:35
PROVIDERS: Emergency Medicine; Hospitalist; Internal Medicine; Student in an Organized Health Care Education/Training Program; ADMIT Emergency Medicine; ATTEND Emergency Medicine
DX: E10.10 Type 1 diabetes mellitus with ketoacidosis without coma (principal); N17.0 Acute kidney failure with tubular necrosis; G93.41 Metabolic encephalopathy; R65.10 Systemic inflammatory response syndrome (SIRS) of non-infectious origin without acute organ dysfunction; E44.0 Moderate protein-calorie malnutrition; E87.1 Hypo-osmolality and hyponatremia; E87.6 Hypokalemia; D64.9 Anemia, unspecified; Z79.4 Long term (current) use of insulin; Z79.899 Other long term (current) drug therapy; Z90.710 Acquired absence of both cervix and uterus

== ENCOUNTER → 2021-05-29 | Outpatient (CLI) | payer MEDICARE ==
[~2021-05-29] MED LIST changes: +METFORMIN HYDR500 MG PO
== END | disposition home or self-care (01) ==
LOC: RESCLI 02:54
PROVIDERS: ATTEND Internal Medicine
DX: M81.0 Age-related osteoporosis without current pathological fracture (principal); E11.65 Type 2 diabetes mellitus with hyperglycemia; I10 Essential (primary) hypertension; E78.5 Hyperlipidemia, unspecified; E83.51 Hypocalcemia; Z79.4 Long term (current) use of insulin; E78.2 Mixed hyperlipidemia; Z79.84 Long term (current) use of oral hypoglycemic drugs; Z79.899 Other long term (current) drug therapy; Z90.710 Acquired absence of both cervix and uterus

== ENCOUNTER 2021-07-11 21:17 | Inpatient (IN) | payer MEDICARE ==
[~2021-07-11] VITALS: Ht 172.7 cm; Wt 60.8 kg
[2021-07-11 21:20] VITALS: BP 160/86
[2021-07-11 22:22] LABS: BILIRUBIN Negative (Negative); BLOOD Trace-Lysed (Negative); CLARITY Cloudy (Clear); COLOR Yellow (Yellow); GLUCOSE 3+ (Negative); KETONE 4+ (Negative); LEUKO ESTERASE Negative (Negative); NITRITE Negative (Negative); SPECIFIC GRAVITY 1.025 (1.001-1.030); UROBILINOGEN 0.2 E.U./dl (0.0-1.0)
[2021-07-11 22:23] LABS: BASO # 0.1 10*3/uL (0.0-0.1); BASO % 0.3 % (0.0-1.0); EOS % 0.1 % (1.0-4.0); HEMATOCRIT 41.6 % (37.0-47.0); LYMPH # 2.3 10*3/uL (1.3-4.4); LYMPH % 15.3 % (27.0-41.0); MEAN CORPUSCULAR HGB 29.9 pg (27.0-31.0); MEAN CORPUSCULAR HGB CONC 29.6 g/dl (33.0-37.0); MEAN PLATELET VOLUME 10.5 fl (9.6-12.3); MONO # 0.5 10*3/uL (0.1-1.0); MONO % 3.6 % (3.0-9.0); NEUT # 11.8 10*3/uL (2.3-7.9); PLATELET COUNT AUTOMATED 375 10*3/uL (130-400); RED BLOOD COUNT 4.12 10*6/uL (4.10-5.10); RED CELL DISTRI WIDTH 14.6 % (0-14.5); WHITE BLOOD COUNT 14.8 10*3/uL (4.8-10.8)
[2021-07-11 22:38] LABS: ALBUMIN 3.4 gm/dl (3.1-4.5); CREATININE 1.58 mg/dL (0.55-1.02); POTASSIUM 5.3 mmol/L (3.5-5.1); TOTAL PROTEIN 7.1 gm/dL (6.4-8.2)
[2021-07-11 22:48] LABS: WBC 0-2 wbc/hpf (0-5)
[2021-07-11 23:24] LABS: ABG BASE EXCESS -30.9 mmol/L (-2.0-2.0); ARTERIAL BLOOD GAS PO2 131.4 (80-90)
[2021-07-11 23:25] LABS: ARTERIAL BLOOD GAS PH 6.825 (7.35-7.45)
[2021-07-11 23:31] VITALS: BP 114/49
[2021-07-12] VITALS (8 sets, daily range): BP systolic 112–137; BP diastolic 42–84
[2021-07-12 00:44] LABS: CREATININE 1.65 mg/dL (0.55-1.02); POTASSIUM 4.9 mmol/L (3.5-5.1)
[2021-07-12 02:31] LABS: ARTERIAL BLOOD GAS PO2 135.3 (80-90)
[2021-07-12 02:33] LABS: ABG BASE EXCESS -27.9 mmol/L (-2.0-2.0); ARTERIAL BLOOD GAS PH 6.975 (7.35-7.45)
[2021-07-12 03:48] LABS: CREATININE 1.44 mg/dL (0.55-1.02)
[2021-07-12 03:49] LABS: POTASSIUM 3.7 mmol/L (3.5-5.1)
[2021-07-12 05:19] LABS: CREATININE 1.57 mg/dL (0.55-1.02); POTASSIUM 3.7 mmol/L (3.5-5.1)
[2021-07-12 07:09] LABS: CREATININE 1.45 mg/dL (0.55-1.02); POTASSIUM 3.6 mmol/L (3.5-5.1)
[2021-07-12 08:29] LABS: ARTERIAL BLOOD GAS PH 7.349 (7.35-7.45); ARTERIAL BLOOD GAS PO2 87.5 (80-90)
[2021-07-12 08:30] LABS: ABG BASE EXCESS -14.6 mmol/L (-2.0-2.0)
[2021-07-12 10:21] LABS: CREATININE 1.28 mg/dL (0.55-1.02); POTASSIUM 3.1 mmol/L (3.5-5.1)
[2021-07-12 15:37] LABS: CREATININE 1.15 mg/dL (0.55-1.02); POTASSIUM 3.6 mmol/L (3.5-5.1)
[2021-07-12 18:34] LABS: BUN 18 mg/dl (7-24); CHLORIDE 120 mmol/L (98-107); CREATININE 1.07 mg/dL (0.55-1.02); POTASSIUM 3.8 mmol/L (3.5-5.1); SODIUM 146 mmol/L (136-145)
[2021-07-12 23:44] LABS: CREATININE 1.18 mg/dL (0.55-1.02)
[2021-07-13] VITALS: BP 105/57
[2021-07-13 02:05] LABS: BUN 13 mg/dl (7-24); CHLORIDE 119 mmol/L (98-107); CREATININE 0.98 mg/dL (0.55-1.02); POTASSIUM 2.9 mmol/L (3.5-5.1); SODIUM 148 mmol/L (136-145)
[2021-07-13 04:00] VITALS: BP 106/51
[2021-07-13 05:54] LABS: ALBUMIN 2.4 gm/dl (3.1-4.5); ALKALINE PHOSPHATASE 106 U/L (45-117); BUN 11 mg/dl (7-24); CHLORIDE 120 mmol/L (98-107); CREATININE 0.98 mg/dL (0.55-1.02); POTASSIUM 3.3 mmol/L (3.5-5.1); SGOT/AST 36 IU/L (3-35); SGPT/ALT 20 U/L (12-78); SODIUM 147 mmol/L (136-145); TOTAL PROTEIN 5.4 gm/dL (6.4-8.2)
[2021-07-13 06:34] LABS: BASO % 0.1 % (0.0-1.0); EOS % 0.3 % (1.0-4.0); HEMATOCRIT 35.7 % (37.0-47.0); LYMPH # 1.5 10*3/uL (1.3-4.4); LYMPH % 14.7 % (27.0-41.0); MEAN CORPUSCULAR HGB 30.3 pg (27.0-31.0); MEAN CORPUSCULAR HGB CONC 32.8 g/dl (33.0-37.0); MEAN PLATELET VOLUME 10.5 fl (9.6-12.3); MONO # 0.6 10*3/uL (0.1-1.0); MONO % 5.8 % (3.0-9.0); NEUT # 8.1 10*3/uL (2.3-7.9); NEUT % 78.8 % (47.0-73.0); RED BLOOD COUNT 3.86 10*6/uL (4.10-5.10); RED CELL DISTRI WIDTH 14.6 % (0-14.5); WHITE BLOOD COUNT 10.2 10*3/uL (4.8-10.8)
[2021-07-13 06:50] LABS: MEAN CELL VOLUME 92.5 fl (81.0-99.0); PLATELET COUNT AUTOMATED 173 10*3/uL (130-400)
[2021-07-13 08:00] VITALS: BP 109/68
[2021-07-13 11:52] LABS: BUN 9 mg/dl (7-24); CHLORIDE 119 mmol/L (98-107); CREATININE 0.91 mg/dL (0.55-1.02); POTASSIUM 3.2 mmol/L (3.5-5.1); SODIUM 146 mmol/L (136-145)
[2021-07-13 16:00] VITALS: BP 107/87
[2021-07-13 18:43] LABS: BUN 6 mg/dl (7-24); CHLORIDE 117 mmol/L (98-107); CREATININE 0.83 mg/dL (0.55-1.02); POTASSIUM 3.2 mmol/L (3.5-5.1); SODIUM 146 mmol/L (136-145)
[2021-07-13 20:04] VITALS: BP 126/73
[2021-07-14] VITALS: BP 93/53
[2021-07-14 04:00] VITALS: BP 123/78
[2021-07-14 05:34] LABS: ALBUMIN 2.3 gm/dl (3.1-4.5); ALKALINE PHOSPHATASE 119 U/L (45-117); BUN 8 mg/dl (7-24); CHLORIDE 116 mmol/L (98-107); CREATININE 0.71 mg/dL (0.55-1.02); POTASSIUM 3.8 mmol/L (3.5-5.1); SGOT/AST 46 IU/L (3-35); SGPT/ALT 26 U/L (12-78); SODIUM 144 mmol/L (136-145); TOTAL PROTEIN 5.4 gm/dL (6.4-8.2)
[2021-07-14 07:35] LABS: BASO % 0.2 % (0.0-1.0); EOS # 0.1 10*3/uL (0.0-0.4); EOS % 1.2 % (1.0-4.0); HEMATOCRIT 35.9 % (37.0-47.0); LYMPH # 1.1 10*3/uL (1.3-4.4); LYMPH % 19.8 % (27.0-41.0); MEAN CORPUSCULAR HGB 30.2 pg (27.0-31.0); MEAN CORPUSCULAR HGB CONC 31.8 g/dl (33.0-37.0); MEAN PLATELET VOLUME 11.3 fl (9.6-12.3); MONO # 0.3 10*3/uL (0.1-1.0); MONO % 5.2 % (3.0-9.0); NEUT # 4.2 10*3/uL (2.3-7.9); NEUT % 73.3 % (47.0-73.0); PLATELET COUNT AUTOMATED 125 10*3/uL (130-400); RED BLOOD COUNT 3.78 10*6/uL (4.10-5.10); RED CELL DISTRI WIDTH 15.1 % (0-14.5); WHITE BLOOD COUNT 5.8 10*3/uL (4.8-10.8)
[2021-07-14 08:00] VITALS: BP 122/77
[2021-07-14 12:00] VITALS: BP 112/71
[2021-07-14 16:00] VITALS: BP 129/79
[2021-07-14 20:00] VITALS: BP 128/86
[2021-07-15] VITALS: BP 137/66
[2021-07-15 06:20] LABS: RETICULOCYTE % 0.64 % (0.50-2.50)
[2021-07-15 06:30] LABS: CHLORIDE 115 mmol/L (98-107); POTASSIUM 3.1 mmol/L (3.5-5.1); SODIUM 147 mmol/L (136-145)
[2021-07-15 06:49] LABS: ALBUMIN 2.4 gm/dl (3.1-4.5); ALKALINE PHOSPHATASE 125 U/L (45-117); BUN 8 mg/dl (7-24); CREATININE 0.58 mg/dL (0.55-1.02); SGOT/AST 30 IU/L (3-35); SGPT/ALT 27 U/L (12-78); TOTAL PROTEIN 5.8 gm/dL (6.4-8.2)
[2021-07-15 06:59] LABS: BASO % 0.5 % (0.0-1.0); EOS # 0.2 10*3/uL (0.0-0.4); EOS % 2.9 % (1.0-4.0); HEMATOCRIT 37.2 % (37.0-47.0); LYMPH # 2.5 10*3/uL (1.3-4.4); LYMPH % 41.9 % (27.0-41.0); MEAN CELL VOLUME 92.1 fl (81.0-99.0); MEAN CORPUSCULAR HGB CONC 32.5 g/dl (33.0-37.0); MEAN PLATELET VOLUME 10.7 fl (9.6-12.3); MONO # 0.3 10*3/uL (0.1-1.0); MONO % 5.2 % (3.0-9.0); NEUT # 2.9 10*3/uL (2.3-7.9); NEUT % 49.2 % (47.0-73.0); RED BLOOD COUNT 4.04 10*6/uL (4.10-5.10); RED CELL DISTRI WIDTH 14.8 % (0-14.5); WHITE BLOOD COUNT 5.9 10*3/uL (4.8-10.8)
[2021-07-15 07:03] LABS: PLATELET COUNT AUTOMATED 169 10*3/uL (130-400)
[2021-07-15 07:04] LABS: ACT PARTIAL THROMBO TIME 24.5 SECONDS (20.0-32.1)
[2021-07-15 08:15] VITALS: BP 135/68
[2021-07-15 12:04] VITALS: BP 134/67
[2021-07-15 16:00] VITALS: BP 142/68
[2021-07-15 20:00] VITALS: BP 142/74
[2021-07-16] VITALS: BP 125/74
[2021-07-16 06:22] LABS: CHLORIDE 112 mmol/L (98-107); POTASSIUM 3.2 mmol/L (3.5-5.1); SODIUM 145 mmol/L (136-145)
[2021-07-16 06:25] LABS: BUN 10 mg/dl (7-24); CREATININE 0.55 mg/dL (0.55-1.02)
[2021-07-16 06:31] LABS: BASO % 0.2 % (0.0-1.0); EOS # 0.2 10*3/uL (0.0-0.4); EOS % 3.6 % (1.0-4.0); HEMATOCRIT 32.2 % (37.0-47.0); LYMPH % 35.8 % (27.0-41.0); MEAN CELL VOLUME 93.3 fl (81.0-99.0); MEAN CORPUSCULAR HGB 30.1 pg (27.0-31.0); MEAN CORPUSCULAR HGB CONC 32.3 g/dl (33.0-37.0); MEAN PLATELET VOLUME 10.7 fl (9.6-12.3); MONO # 0.4 10*3/uL (0.1-1.0); MONO % 7.3 % (3.0-9.0); NEUT # 2.9 10*3/uL (2.3-7.9); NEUT % 52.7 % (47.0-73.0); PLATELET COUNT AUTOMATED 121 10*3/uL (130-400); RED BLOOD COUNT 3.45 10*6/uL (4.10-5.10); RED CELL DISTRI WIDTH 14.6 % (0-14.5); WHITE BLOOD COUNT 5.5 10*3/uL (4.8-10.8)
[2021-07-16 08:00] VITALS: BP 129/69
[2021-07-16] MEDS ORDERED: LANTUS SOL100 UNIT/1 SC (13:38)
== END 2021-07-16 13:00 | disposition home health service (06) | DRG 637 ==
LOC: ED 21:17 → ICCU 07-12 00:01 → EDHOLD 07-12 00:01 → ICCU 07-12 00:24 → 4E 07-14 14:31
PROVIDERS: Emergency Medicine; Internal Medicine; Internal Medicine Hematology & Oncology; Registered Nurse; Student in an Organized Health Care Education/Training Program; ADMIT Internal Medicine; ATTEND Internal Medicine
DX: E10.10 Type 1 diabetes mellitus with ketoacidosis without coma (principal); N17.0 Acute kidney failure with tubular necrosis; E43 Unspecified severe protein-calorie malnutrition; G93.41 Metabolic encephalopathy; R65.10 Systemic inflammatory response syndrome (SIRS) of non-infectious origin without acute organ dysfunction; E87.1 Hypo-osmolality and hyponatremia; D69.6 Thrombocytopenia, unspecified; Z20.822 Contact with and (suspected) exposure to COVID-19; E83.41 Hypermagnesemia; E53.8 Deficiency of other specified B group vitamins; E78.2 Mixed hyperlipidemia; I10 Essential (primary) hypertension; Z79.01 Long term (current) use of anticoagulants; E83.39 Other disorders of phosphorus metabolism; E87.6 Hypokalemia; Z90.710 Acquired absence of both cervix and uterus; Z68.20 Body mass index [BMI] 20.0-20.9, adult; E55.9 Vitamin D deficiency, unspecified; D75.89 Other specified diseases of blood and blood-forming organs

== ENCOUNTER → 2021-07-25 | Outpatient (CLI) | payer MEDICARE ==
[2021-07-25 12:09] LABS: BASO # 0.1 10*3/uL (0.0-0.1); BASO % 0.5 % (0.0-1.0); EOS # 0.1 10*3/uL (0.0-0.4); EOS % 0.7 % (1.0-4.0); HEMATOCRIT 41.8 % (37.0-47.0); LYMPH # 2.9 10*3/uL (1.3-4.4); LYMPH % 26.2 % (27.0-41.0); MEAN CELL VOLUME 95.9 fl (81.0-99.0); MEAN CORPUSCULAR HGB 30.5 pg (27.0-31.0); MEAN CORPUSCULAR HGB CONC 31.8 g/dl (33.0-37.0); MEAN PLATELET VOLUME 9.8 fl (9.6-12.3); MONO # 0.7 10*3/uL (0.1-1.0); MONO % 5.9 % (3.0-9.0); NEUT # 7.3 10*3/uL (2.3-7.9); NEUT % 66.4 % (47.0-73.0); PLATELET COUNT AUTOMATED 361 10*3/uL (130-400); RED BLOOD COUNT 4.36 10*6/uL (4.10-5.10); WHITE BLOOD COUNT 10.9 10*3/uL (4.8-10.8)
[2021-07-25 12:30] LABS: ALBUMIN 3.8 gm/dl (3.1-4.5); CREATININE 1.57 mg/dL (0.55-1.02); POTASSIUM 3.9 mmol/L (3.5-5.1); TOTAL PROTEIN 8.1 gm/dL (6.4-8.2)
== END | disposition home or self-care (01) ==
LOC: RESCLI 06:09
PROVIDERS: Registered Nurse; ATTEND Internal Medicine
DX: E78.5 Hyperlipidemia, unspecified (principal); I10 Essential (primary) hypertension; E11.65 Type 2 diabetes mellitus with hyperglycemia; M81.0 Age-related osteoporosis without current pathological fracture; E78.2 Mixed hyperlipidemia; Z79.4 Long term (current) use of insulin; Z79.84 Long term (current) use of oral hypoglycemic drugs; Z79.899 Other long term (current) drug therapy

== ENCOUNTER → 2021-10-21 | Outpatient (CLI) | payer MEDICARE ==
[2021-10-22 09:07] LABS: CREATININE,URINE 26.5 mg/dL (Not Estab.); MICRO ALBUMIN/CRE RATIO <11 (0-29)
== END | disposition home or self-care (01) ==
LOC: RESCLI 00:32
PROVIDERS: Internal Medicine; ATTEND Internal Medicine
DX: E11.65 Type 2 diabetes mellitus with hyperglycemia (principal); M81.0 Age-related osteoporosis without current pathological fracture; E78.2 Mixed hyperlipidemia; I10 Essential (primary) hypertension; Z79.4 Long term (current) use of insulin; Z79.899 Other long term (current) drug therapy; Z90.710 Acquired absence of both cervix and uterus

== ENCOUNTER → 2021-11-28 | Outpatient (CLI) | payer MEDICARE | END | disposition home or self-care (01) | LOC: RESCLI 01:34 | PROVIDERS: ATTEND Internal Medicine | DX: E11.65 Type 2 diabetes mellitus with hyperglycemia (principal); E78.2 Mixed hyperlipidemia; I10 Essential (primary) hypertension; Z79.4 Long term (current) use of insulin; E13.9 Other specified diabetes mellitus without complications; M81.0 Age-related osteoporosis without current pathological fracture; Z79.899 Other long term (current) drug therapy ==

== ENCOUNTER → 2022-01-09 | Outpatient (CLI) | payer MEDICARE | END | disposition home or self-care (01) | LOC: RESCLI 00:11 | PROVIDERS: ATTEND Student in an Organized Health Care Education/Training Program | DX: I10 Essential (primary) hypertension (principal); E78.2 Mixed hyperlipidemia; E11.65 Type 2 diabetes mellitus with hyperglycemia; E13.9 Other specified diabetes mellitus without complications; Z79.4 Long term (current) use of insulin; Z79.899 Other long term (current) drug therapy ==

== ENCOUNTER 2022-03-17 13:46 | Emergency (ER) | payer MEDICARE ==
[2022-03-17] VITALS (8 sets, daily range): BP systolic 72–119; BP diastolic 48–68
[2022-03-17 14:21] LABS: HEMATOCRIT 39.3 % (37.0-47.0); MEAN CELL VOLUME 106.2 fl (81.0-99.0); MEAN CORPUSCULAR HGB 31.4 pg (27.0-31.0); MEAN CORPUSCULAR HGB CONC 29.5 g/dl (33.0-37.0); MEAN PLATELET VOLUME 10.5 fl (9.6-12.3); PLATELET COUNT AUTOMATED 264 10*3/uL (130-400); RED CELL DISTRI WIDTH 13.6 % (0-14.5); WHITE BLOOD COUNT 17.2 10*3/uL (4.8-10.8)
[2022-03-17 14:28] LABS: MANUAL DIFF REFLEX YES
[2022-03-17 14:38] LABS: ACT PARTIAL THROMBO TIME 30.9 SECONDS (20.0-32.1); INTERNATIONAL NORM RATIO 1.5 (2.0-3.5)
[2022-03-17 14:42] LABS: TOTAL CELLS COUNTED 100 #CELLS
[2022-03-17 14:43] LABS: BURR CELLS MODERATE; PLATELET SUFFICIENCY NORMAL (NORMAL); VACUOLATION OF NEUTROPHILS MODERATE
[2022-03-17 14:44] LABS: CREATININE 4.38 mg/dL (0.55-1.02); TOTAL PROTEIN 6.6 gm/dL (6.4-8.2)
[2022-03-17 15:02] LABS: POTASSIUM 6.2 mmol/L (3.5-5.1)
[2022-03-17 15:36] LABS: BILIRUBIN Negative (Negative); BLOOD 1+ (Negative); CLARITY Cloudy (Clear); COLOR Yellow (Yellow); GLUCOSE 3+ (Negative); KETONE 1+ (Negative); LEUKO ESTERASE Negative (Negative); NITRITE Positive (Negative)
[2022-03-17 15:44] LABS: BACTERIA 1+; EPITHELIAL CELLS 16-20; FINE GRANULAR CAST 0-2
[2022-03-17 18:02] LABS: ARTERIAL BLOOD GAS PO2 101.1 (80-90)
[2022-03-17 18:02] LABS: CREATININE 2.78 mg/dL (0.55-1.02)
[2022-03-17 18:06] LABS: ABG BASE EXCESS -27.8 mmol/L (-2.0-2.0); ARTERIAL BLOOD GAS PH 6.919 (7.35-7.45)
[2022-03-17 18:37] LABS: POTASSIUM 4.2 mmol/L (3.5-5.1)
[2022-03-17 22:42] LABS: ARTERIAL BLOOD GAS PO2 91.6 (80-90)
[2022-03-17 22:44] LABS: ABG BASE EXCESS -21.9 mmol/L (-2.0-2.0); ARTERIAL BLOOD GAS PH 7.125 (7.35-7.45)
[2022-03-17 23:22] LABS: ACETAMINOPHEN (TYLENOL) 14.7 ug/ml (10-30); TOTAL PROTEIN 5.3 gm/dL (6.4-8.2)
[2022-03-17 23:34] LABS: INTERNATIONAL NORM RATIO 1.8 (2.0-3.5)
== END 2022-03-18 01:25 | disposition short-term general hospital (02) ==
LOC: ED 13:46 → EDHOLD 15:18 → ED 15:18
PROVIDERS: Emergency Medicine; Internal Medicine Hematology & Oncology; Student in an Organized Health Care Education/Training Program
DX: E11.10 Type 2 diabetes mellitus with ketoacidosis without coma (principal); R65.10 Systemic inflammatory response syndrome (SIRS) of non-infectious origin without acute organ dysfunction; N17.9 Acute kidney failure, unspecified; R94.5 Abnormal results of liver function studies; Z90.710 Acquired absence of both cervix and uterus; Z79.899 Other long term (current) drug therapy